=== PATIENT | female | born 1980 | race Hispanic/Latino ===

== ENCOUNTER 2018-11-07 11:15 | Emergency (ER) | payer BC ==
[2018-11-07 11:18] VITALS: BMI 21.9
--- NOTE | 2018-11-07 12:10 | ED PDOC ---
HPI: Abdomen Time Seen by Provider: 11/07/18 11:58 Chief Complaint (Nursing): Abdominal Pain Chief Complaint (Provider): Abdominal pain History Per: Patient History/Exam Limitations: no limitations Onset/Duration Of Symptoms: Days Outside of [place] travel?: No Current Symptoms Are (Timing): Still Present Location Of Pain/Discomfort: Diffuse Quality Of Discomfort: Dull, "Pain" Associated Symptoms: Chills, Nausea, Loss Of Appetite. denies: Back Pain, Chest Pain, Urinary Symptoms Additional History Per: Patient Additional Complaint(s): 38yo female, otherwise well, comes to ER from urgent care for evaluation of diffuse abdominal pain, present x 2 days. She reports tactile fever, chills, nausea, and states she "feels weak." Patient states she had a near syncope episode while in the bathroom yesterday, denies any loss of consciousness or head injury. Patient took Motrin and Benadryl last night with some relief. No additional complaints. PMD: None Abnormal Vaginal Bleeding: No Past Medical History Reviewed: Historical Data, Nursing Documentation, Vital Signs Vital Signs: Last Vital Signs Temp 97.8 F 11/07/18 11:17 Pulse 68 11/07/18 11:17 Resp 17 11/07/18 11:17 BP 92/61 L 11/07/18 11:17 Pulse Ox 99 11/07/18 11:17 - Medical History PMH: No Chronic Diseases - Surgical History Surgical History: No Surg Hx - Family History Family History: States: No Known Family Hx - Home Medications Home Medications: Ambulatory Orders Medication Instructions Recorded Dicyclomine [Bentyl] 20 mg PO QID PRN #20 tab 11/07/18 Ibuprofen [Motrin Tab] 600 mg PO Q8 PRN #60 tab 11/07/18 Saccharomyces Boulardi [Florastor] 500 mg PO BID #28 cap 11/07/18 - Allergies Allergies/Adverse Reactions: Allergies Allergy/AdvReac Type Severity Reaction Status Date / Time No Known Allergies Allergy Verified 11/07/18 11:59 Review of Systems ROS Statement: Except As Marked, All Systems Reviewed And Found Negative Constitutional: Positive for: Chills, Weakness Gastrointestinal: Positive for: Nausea, Abdominal Pain. Negative for: Vomiting, Diarrhea Neurological: Negative for: Weakness, Numbness, Headache, Dizziness Physical Exam - Reviewed Nursing Documentation Reviewed: Yes Vital Signs Reviewed: Yes - Physical Exam Appears: Positive for: Non-toxic, No Acute Distress Head Exam: Positive for: ATRAUMATIC, NORMAL INSPECTION, NORMOCEPHALIC Skin: Positive for: Normal Color Eye Exam: Positive for: EOMI, PERRL Neck: Positive for: Normal, Supple Cardiovascular/Chest: Positive for: Regular Rate, Rhythm. Negative for: Tachycardia Respiratory: Positive for: Normal Breath Sounds. Negative for: Respiratory Distress Gastrointestinal/Abdominal: Positive for: Soft, Tenderness (epigastric and left lower quadrant tenderness). Negative for: Mass, Guarding, Rebound Back: Positive for: Normal Inspection Extremity: Positive for: Normal ROM. Negative for: Pedal Edema, Deformity Neurological/Psych: Positive for: Awake, Alert, Oriented (x 3) - Laboratory Results Result Diagrams: 11/07/18 12:56 11/07/18 12:56 - ECG O2 Sat by Pulse Oximetry: 99 (RA) Pulse Ox Interpretation: Normal Medical Decision Making Medical Decision Making: Impression: Abdominal pain Plan: -- Labs -- Urinalysis -- UDip 1400 Labs and UA reviewed, no clinically significant abnormalities. 1453 Patient resting in room comfortably. Patient to be signed out to Dr. Brooks pending CT AP. Scribe Attestation: Documented by Jenifer Ken acting as a scribe for Joya Basurto MD. Provider Attestation: All medical record entries made by the Scribe were at my direction and personally dictated by me. I have reviewed the chart and agree that the record accurately reflects my personal performance of the history, physical exam, medical decision making, and the department course for this patient. I have also personally directed, reviewed, and agree with the discharge instructions and d isposition. Disposition - Clinical Impression Clinical Impression: Gastroenteritis - Disposition Referrals: [facility] [Outside] [facility] [Outside] Disposition: Transfer of Care Disposition Time: 15:00 Condition: IMPROVED Additional Instructions: STICK TO BLAND DIET AND DRINK PLENTY OF HYDRATING FLUIDS AND REST FOLLOWUP WITH [facility] AND [facility] IN 24-48 HOURS FOR REEVALUATION. (BOTH SERVICES WILL CONNECT YOU TO LOCAL PRIMARY CARE PHYSICIANS FOR FOLLOWUP.) RETURN TO ER FOR WORSENING SYMPTOMS. Prescriptions: Dicyclomine [Bentyl] 20 mg PO QID PRN #20 tab PRN Reason: abdominal pain Ibuprofen [Motrin Tab] 600 mg PO Q8 PRN #60 tab PRN Reason: Pain Saccharomyces Boulardi [Florastor] 500 mg PO BID #28 cap Instructions: Gastroenteritis (ED) Forms: [facility] [employer] [facility] (Thai) Patient Signed Over To: Jasmin Brooks
[2018-11-07] MEDS ORDERED: Sodium Chloride 0.9% 1,000 ML IV STA ×2 (12:18→14:54)
[2018-11-07 13:10] LABS: BASO % 0.4 % (0.0-2.0); EOS % 0.1 % (0.0-4.0); HEMOGLOBIN 13.6 g/dL (12.0-16.0); LYMPH # 0.4 K/uL (1.0-4.3); LYMPH % 7.2 % (20.0-40.0); MEAN CORPUSCULAR HGB CONC 33.7 g/dL (33.0-37.0); MEAN PLATELET VOLUME 9.4 fl (7.2-11.7); MONO # 0.2 K/uL (0.0-0.8); MONO % 3.9 % (0.0-10.0); NEUT # 5.5 K/uL (1.8-7.0); NEUT % 88.4 % (50.0-75.0); PLATELET COUNT 245 K/uL (130-400); RBC 4.24 Mil/uL (3.80-5.20); WHITE BLOOD COUNT 6.2 K/uL (4.8-10.8)
[2018-11-07 13:11] LABS: INR 1.3; PROTHROMBIN TIME 14.4 Seconds (9.8-13.1)
[2018-11-07 13:14] LABS: SQUAMOUS EPITHIAL 4 /hpf (0-5); URINE BILIRUBIN NEGATIVE (NEGATIVE); URINE BLOOD SMALL (NEGATIVE); URINE CLARITY SLIGHTY-CLOUDY (Clear); URINE COLOR YELLOW (YELLOW); URINE GLUCOSE (UA) NEG (NEGATIVE); URINE LEUKOCYTE ESTERASE NEG Leu/uL (Negative); URINE PROTEIN NEGATIVE (NEGATIVE); URINE UROBILINOGEN 0.2-1.0 mg/dL (0.2-1.0)
[2018-11-07 13:18] LABS: ALB/GLOB RATIO 1.4 (1.0-2.1); ALBUMIN 4.6 g/dL (3.5-5.0); BLOOD UREA NITROGEN 9 mg/dl (7-17); CALCIUM 8.8 mg/dL (8.4-10.2); GFR NON-AFRICAN AMERICAN > 60; LIPASE 47 U/L (23-300)
[2018-11-07 13:29] LABS: ALT/SGPT 24 U/L (9-52); AST/SGOT 40 U/L (14-36)
[2018-11-07] MEDS ORDERED: Iohexol 300 100 ML IJ ONE (13:45)
[2018-11-07 13:55] LABS: BANDS 5 % (0-2); EOSINOPHIL 1 % (0-7); LYMPHOCYTE 9 % (20-50); MONOCYTE 4 % (0-10); NEUTROPHIL 81 % (42-75); PLATELET ESTIMATE NORMAL (NORMAL); TOTAL CELLS COUNTED 100
--- NOTE | 2018-11-07 15:10 | ED PDOC ---
- Laboratory Results Result Diagrams: 11/07/18 12:56 11/07/18 12:56 Lab Results: PT 14.4 Seconds (9.8-13.1) H 11/07/18 12:56 INR 1.3 11/07/18 12:56 APTT 31.0 Seconds (25.6-37.1) 11/07/18 12:56 Total Bilirubin 1.0 mg/dl (0.2-1.3) 11/07/18 12:56 AST 40 U/L (14-36) H 11/07/18 12:56 ALT 24 U/L (9-52) 11/07/18 12:56 Alkaline Phosphatase 42 U/L (38-126) 11/07/18 12:56 Total Protein 7.8 G/DL (6.3-8.2) 11/07/18 12:56 Albumin 4.6 g/dL (3.5-5.0) 11/07/18 12:56 Globulin 3.2 gm/dL (2.2-3.9) 11/07/18 12:56 Albumin/Globulin Ratio 1.4 (1.0-2.1) 11/07/18 12:56 Lipase 47 U/L (23-300) 11/07/18 12:56 Urine Color Yellow (YELLOW) 11/07/18 12:56 Urine Clarity Slighty-cloudy (Clear) 11/07/18 12:56 Urine pH 6.0 (5.0-8.0) 11/07/18 12:56 Ur Specific [place] 1.010 (1.003-1.030) 11/07/18 12:56 Urine Protein Negative mg/dL (NEGATIVE) 11/07/18 12:56 Urine Glucose (UA) Neg mg/dL (NEGATIVE) 11/07/18 12:56 Urine Ketones 20 mg/dL (NEGATIVE) 11/07/18 12:56 Urine Blood Small (NEGATIVE) 11/07/18 12:56 Urine Nitrate Negative (NEGATIVE) 11/07/18 12:56 Urine Bilirubin Negative (NEGATIVE) 11/07/18 12:56 Urine Urobilinogen 0.2-1.0 mg/dL (0.2-1.0) 11/07/18 12:56 Ur Leukocyte Esterase Neg Bo/uL (Negative) 11/07/18 12:56 Urine RBC (Auto) 4 /hpf (0-3) H 11/07/18 12:56 Urine Microscopic WBC 1 /hpf (0-5) 11/07/18 12:56 Ur Squamous Epith Cells 4 /hpf (0-5) 11/07/18 12:56 - ECG O2 Sat by Pulse Oximetry: 99 (RA) Pulse Ox Interpretation: Normal Medical Decision Making Medical Decision Makin 38yo female presenting with diffuse abdominal pain Patient signed out to me by Dr. Basurto pending CT A/P Patient resting comfortably at this time. Accession No. : [id number] Patient Name / ID : REGAN QUINTERO / [id number] Exam Date : 11/07/2018 13:53:54 ( Approved ) Study Comment : Sex / Age : F / 38Y Creator : anita amanda Dictator : Ruddy Torrez MD Honing Machine Try Out Setter : Die Repairer Trimmer Dies : Ruddy Torrez MD Approver2 : Report Date : 11/07/2018 14:27:44 My Comment : Date of service: 11/07/2018 PROCEDURE: CT abdomen and pelvis. HISTORY: LLQ pain COMPARISON: None. TECHNIQUE: Contiguous axial images of the abdomen and pelvis performed following intravenous injection of approximately 90 cc Omnipaque 300 contrast material. Additional 2D sagittal and coronal reformats generated. Radiation dose: Total exam DLP = 315.52 mGy-cm. This CT exam was performed using one or more of the following dose reduction lianet hniques: Automated exposure control, adjustment of the mA and/or kV according to patient size, and/or use of iterative reconstruction technique. FINDINGS: LOWER THORAX: In situ bilateral breast prostheses are identified. Heart size within range normal. No significant pericardial effusion. Lung bases clear without focal consolidation effusion or basilar pneumothorax. LIVER: Liver exhibits normal size measuring approximately 15.2 cm. No obvious hepatic mass collection or calcification. Portal and splenic veins are opacified. GALLBLADDER AND BILE DUCTS: Gallbladder is physiologically distended. No evidence of intraluminal gallbladder calculi. PANCREAS: Pancreas unremarkable. SPLEEN: Unremarkable. No splenomegaly. ADRENALS: No adrenal lesions KIDNEYS AND URETERS: Kidneys demonstrate symmetric nephrograms. No evidence of nephrolithiasis or hydronephrosis. BLADDER: Urinary bladder is physiologically distended. No evidence of intraluminal urinary bladder calculi. REPRODUCTIVE: There is in involuting and/or hemorrhagic cyst left adnexa which measures approximately 19 mm. There appears to be a small amount of free fluid within the right aspect of the cul de sac APPENDIX: Normal-appearing although fluid-filled appendix seen on axial images numbers 101-125. No evidence to suggest acute appendicitis BOWEL: Evaluation of the bowel is somewhat limited due to the lack of oral contrast material. The stomach is incompletely distended with thick-walled appearance. Multiple minimally prominent fluid-filled loops of small bowel are present; findings could represent an ileus, enteritis or possibly a diarrheal illness.. There is also moderate amount of fluid seen throughout most of the colon again possibly representing a diarrheal illness. There is desiccated formed stool in the sigmoid and rectum. PERITONEUM: Small amount of free fluid felt be present within the right aspect of the cul de sac.. No free air. LYMPH NODES: Unremarkable. No enlarged lymph nodes. VASCULATURE: Unremarkable. No aortic aneurysm. No aortic atherosclerotic calcification or mural plaque present. BONES: No fracture or destructive lesion. OTHER FINDINGS: None. IMPRESSION: Involuting and/or hemorrhagic cyst left adnexa which measures approximately 19 mm. There appears to be a small amount of free fluid within the right aspect of the cul de sac Multiple minimally prominent fluid-filled loops of small bowel are present; findings could represent an ileus, enteritis or diarrheal illness.. There is also moderate amount of fluid seen throughout most of the colon again possibly representing a diarrheal illness. There is desiccated formed stool in the sigmoid and rectum. 415p DW pt findings. On reevaluation pt feels better with ER management. Advised rest, fluids, continue Zofran, and ibuprofen and bentyl will be added to prescriptions. Advised f/u PMD or [facility] in 24-48 hours. Scribe Attestation: Documented by Jenifer Ken acting as a scribe for Jasmin Brooks MD. Provider Attestation: All medical record entries made by the Scribe were at my direction and personally dictated by me. I have reviewed the chart and agree that the record accurately reflects my personal performance of the history, physical exam, medical decision making, and the department course for this patient. I have also personally directed, reviewed, and agree with the discharge instructions and disposition. Disposition - Clinical Impression Clinical Impression: Gastroenteritis - POA Present On Arrival: None - Disposition Referrals: [facility] [Outside] [facility] [Outside] Disposition: Routine/Home Disposition Time: 16:22 Condition: IMPROVED Additional Instructions: STICK TO BLAND DIET AND DRINK PLENTY OF HYDRATING FLUIDS AND REST FOLLOWUP WITH [facility] AND [facility] IN 24-48 HOURS FOR REEVALUATION. (BOTH SERVICES WILL CONNECT YOU TO LOCAL PRIMARY CARE PHYSICIANS FOR FOLLOWUP.) RETURN TO ER FOR WORSENING SYMPTOMS. Prescriptions: Dicyclomine [Bentyl] 20 mg PO QID PRN #20 tab PRN Reason: abdominal pain Ibuprofen [Motrin Tab] 600 mg PO Q8 PRN #60 tab PRN Reason: Pain Instructions: Gastroenteritis (ED) Forms: Linda Aguila (Setswana)
--- NOTE | 2018-11-07 15:22 | CT ---
Date of service: 11/07/2018 PROCEDURE: CT abdomen and pelvis. HISTORY: LLQ pain COMPARISON: None. TECHNIQUE: Contiguous axial images of the abdomen and pelvis performed following intravenous injection of approximately 90 cc Omnipaque 300 contrast material. Additional 2D sagittal and coronal reformats generated. Radiation dose: Total exam DLP = 315.52 mGy-cm. This CT exam was performed using one or more of the following dose reduction techniques: Automated exposure control, adjustment of the mA and/or kV according to patient size, and/or use of iterative reconstruction technique. FINDINGS: LOWER THORAX: In situ bilateral breast prostheses are identified. Heart size within range normal. No significant pericardial effusion. Lung bases clear without focal consolidation effusion or basilar pneumothorax. LIVER: Liver exhibits normal size measuring approximately 15.2 cm. No obvious hepatic mass collection or calcification. Portal and splenic veins are opacified. GALLBLADDER AND BILE DUCTS: Gallbladder is physiologically distended. No evidence of intraluminal gallbladder calculi. PANCREAS: Pancreas unremarkable. SPLEEN: Unremarkable. No splenomegaly. ADRENALS: No adrenal lesions KIDNEYS AND URETERS: Kidneys demonstrate symmetric nephrograms. No evidence of nephrolithiasis or hydronephrosis. BLADDER: Urinary bladder is physiologically distended. No evidence of intraluminal urinary bladder calculi. REPRODUCTIVE: There is in involuting and/or hemorrhagic cyst left adnexa which measures approximately 19 mm. There appears to be a small amount of free fluid within the right aspect of the cul de sac APPENDIX: Normal-appearing although fluid-filled appendix seen on axial images numbers 101-125. No evidence to suggest acute appendicitis BOWEL: Evaluation of the bowel is somewhat limited due to the lack of oral contrast material. The stomach is incompletely distended with thick-walled appearance. Multiple minimally prominent fluid-filled loops of small bowel are present; findings could represent an ileus, enteritis or possibly a diarrheal illness.. There is also moderate amount of fluid seen throughout most of the colon again possibly representing a diarrheal illness. There is desiccated formed stool in the sigmoid and rectum. PERITONEUM: Small amount of free fluid felt be present within the right aspect of the cul de sac.. No free air. LYMPH NODES: Unremarkable. No enlarged lymph nodes. VASCULATURE: Unremarkable. No aortic aneurysm. No aortic atherosclerotic calcification or mural plaque present. BONES: No fracture or destructive lesion. OTHER FINDINGS: None. IMPRESSION: Involuting and/or hemorrhagic cyst left adnexa which measures approximately 19 mm. There appears to be a small amount of free fluid within the right aspect of the cul de sac Multiple minimally prominent fluid-filled loops of small bowel are present; findings could represent an ileus, enteritis or diarrheal illness.. There is also moderate amount of fluid seen throughout most of the colon again possibly representing a diarrheal illness. There is desiccated formed stool in the sigmoid and rectum.
[2018-11-07 16:48] VITALS: BP 96/59; PULSE 80; RESP 16; TEMP 98.9
[2018-11-08 11:48] VITALS: O2SAT 99
== END 2018-11-07 16:55 | disposition home or self-care (01) ==
LOC: H.ER 11:15
DX: K52.9 Noninfective gastroenteritis and colitis, unspecified (principal)
CPT/HCPCS: 74177; 80053; 81003; 81025; 83690; 85025; 85610; 85730; 96374; 96375; 99284; J2270; J2405; J7030; Q9967